=== PATIENT | female | born 1965 | race Two or more races ===

== ENCOUNTER 2025-04-26 11:10 | Day surgery (SDC) | payer MEDICARE, MEDICAID, SELFPAY ==
[2025-04-26] VITALS (12 sets, daily range): BP systolic 140–170; BP diastolic 81–103; PULSE 71–93; RESP 12–20; TEMP 36.4–36.9; O2SAT 97–100; BMI 25.5
[2025-04-26] MEDS: SODIUM CHLORIDE 0.9% 500 ML 500 ML 20 ML IV (13:08)
[2025-04-26] MEDS: fentaNYL CIT INJ 50 mCg/ML AMP 2ML (ASD USE ONLY) IVP (13:24)
[2025-04-26] MEDS: MIDAZOLAM INJ 1 MG/ML VIAL 2 ML (ASD USE ONLY) 2 MG IVP (13:24)
--- NOTE | 2025-04-26 13:40 | SUR.PHASEII ---
1340:pt received from OR via [facility]. pt arousable but drifts back to sleep. no s/s of resp. distress or discomfort. no s/s of pain or discomfort.
--- NOTE | 2025-04-26 14:32 | SUR.PHASEII ---
1423: pt alert and oriented. no s/s of resp. distress and discomfort. no s/s of pain or discomfort. able to drink water without any difficulty. discharge instructions given to sister and pt, verbalizes understanding. all belongings brought given back to patient.
== END 2025-04-26 14:23 | disposition home or self-care (01) ==
PROVIDERS: PCP Family Medicine; Referring Provider Specialist; Visit Provider Specialist
PROC: 0DBE8ZX Excision of Large Intestine, Via Natural or Artificial Opening Endoscopic, Diagnostic (ICD-10-PCS; CPT 45380; principal; 2025-04-26 13:15)
PROC: (CPT 43239; 2025-04-26 13:15)
DX: Z12.11 Encounter for screening for malignant neoplasm of colon (principal); D12.3 Benign neoplasm of transverse colon; D12.4 Benign neoplasm of descending colon; K64.9 Unspecified hemorrhoids; I10 Essential (primary) hypertension; Z79.899 Other long term (current) drug therapy; E78.5 Hyperlipidemia, unspecified; Z79.02 Long term (current) use of antithrombotics/antiplatelets; K29.50 Unspecified chronic gastritis without bleeding; K31.89 Other diseases of stomach and duodenum; K22.10 Ulcer of esophagus without bleeding
CPT/HCPCS: 45380; 45385; 43239; J1200; J2250; J3010; J7999